=== PATIENT | female | born 1985 | race Caucasian/White ===

== ENCOUNTER 2021-01-01 15:46 | Emergency (ER) | payer MEDICAID ==
[~2021-01-01] VITALS: Ht 170.2 cm; Wt 66.4 kg
[2021-01-01 18:17] LABS: BASOPHILS % (AUTO) 0.1 % (0-1); EOSINOPHILS % (AUTO) 0.1 % (0-6); HEMATOCRIT 29.9 % (35.0-45.0); HEMOGLOBIN 9.9 g/dl (12.0-16.0); LYMPHOCYTES # (AUTO) 1.6 X10'3 (1.1-4.8); LYMPHOCYTES % (AUTO) 19.8 % (21-51); MEAN CORPUSCULAR HEMOGLOBIN 25.5 PG (27.0-31.0); MEAN CORPUSCULAR HGB CONC 33.2 g/dL (33.0-36.5); MEAN CORPUSCULAR VOLUME 76.9 FL (78-98); MEAN PLATELET VOLUME 6.1 FL (7.4-10.4); MONOCYTES # (AUTO) 0.3 X10'3 (0-0.9); MONOCYTES % (AUTO) 4.3 % (2-12); NEUTROPHILS # (AUTO) 6.2 X10'3 (1.8-7.7); NEUTROPHILS % (AUTO) 75.7 % (42-75); PLATELET COUNT 384 X10'3 (140-440); RED BLOOD COUNT 3.89 X10'6 (4.20-5.60); RED CELL DISTRIBUTION WIDTH 17.4 % (11.5-14.5); WHITE BLOOD COUNT 8.2 X10'3 (4.5-11.0)
[2021-01-01 18:28] LABS: ALANINE AMINOTRANSFERASE 28 U/L (12-78); ALBUMIN 3.3 G/DL (3.4-5.0); ALBUMIN/GLOBULIN RATIO 0.6 (1.1-1.5); ALKALINE PHOSPHATASE 90 IU/L (46-116); ANION GAP 9 (8-16); ASPARTATE AMINO TRANSFERASE 29 U/L (10-37); BILIRUBIN,TOTAL 0.2 MG/DL (0.1-1.0); BLOOD UREA NITROGEN 6 MG/DL (7-18); BUN/CREATININE RATIO 9.1 (6.6-38.0); CALCIUM 8.6 MG/DL (8.5-10.1); CHLORIDE 104 MMOL/L (99-107); CREATININE 0.66 MG/DL (0.40-0.90); GLUCOSE 91 MG/DL (70-104); POTASSIUM 3.3 MMOL/L (3.5-5.1); SODIUM 142 MMOL/L (135-145); TOTAL CARBON DIOXIDE 28.9 MMOL/L (24-32); TOTAL PROTEIN 8.4 G/DL (6.4-8.2); eGFR > 90 ML/MIN
[2021-01-01 18:57] LABS: BETA HCG,QUANTITATIVE 113459 mIU/ml
--- NOTE | 2021-01-01 19:15 | NUR ---
Pt c/o "Not doing well." She wants to stop drinking because she is . LM 10/14/20. Admits to drinking 2 1/5th of tequila every day. Yesterday she took a steak knife and made several supeficial scratches on B wrists. Pt agrees to not harm herself while she is here in the ER.
[2021-01-01] MEDS ORDERED: potassium Cl 20 mEq SR tablet PO ONE (20:30)
[2021-01-01] MEDS ORDERED: thiamine 100mg tablet PO ONE (20:30)
[2021-01-01] MEDS ORDERED: folic acid 1mg tablet PO ONE (20:30)
[2021-01-01] MEDS ORDERED: LABE100T5 PO (20:47)
[2021-01-01 20:58] LABS: CLARITY,URINE SLIGHTLY CLOUDY (Clear); COLOR,URINE YELLOW (Yellow); GLUCOSE, URINE NEGATIVE (Neg); KETONES,URINE TRACE mg/dl (Neg); OCCULT BLOOD,URINE NEGATIVE (Neg); PROTEIN,URINE 30 mg/dl (Neg); UA COLLECTION TYPE CLN CATCH MIDSTREAM
[2021-01-01 20:59] LABS: LEUKOCYTE ESTERASE ,URINE MODERATE (Neg); NITRITES, URINE NEGATIVE (Neg); UROBILINOGEN,URINE 0.2 E.U/dL (0.2-1.0)
[2021-01-01 21:01] LABS: CELLULAR CAST 0-4 /LPF (NEGATIVE); SQUAMOUS EPITHELIAL CELL,UR FEW /LPF (FEW)
[2021-01-01 21:02] LABS: BACTERIA,URINE 3+ /HPF (Neg); WBC,URINE 30-50 /HPF (0-4)
[2021-01-01 21:03] LABS: URINE AMPHETAMINE SCREEN NEGATIVE (Neg); URINE BARBITUATE SCREEN NEGATIVE (Neg); URINE BENZODIAZEPINES SCREEN POSITIVE (Neg); URINE CANNABINOID SCREEN POSITIVE (Neg); URINE COCAINE SCREEN NEGATIVE (Neg); URINE METHADONE SCREEN NEGATIVE (Neg); URINE OPIATE SCREEN NEGATIVE (Neg); URINE PHENCYCLIDINE SCREEN NEGATIVE (Neg); WBC CLUMPS,URINE FEW /HPF (NEGATIVE)
--- NOTE | 2021-01-01 22:00 | NUR ---
SISTER IN LAW AT BEDSIDE WITH PT, PT HAS LIVELY CONVERSATION WITH FAMILY IN ROOM, PT REPORTS TO ME THAT SHE HAS HAD ALCOHOL TODAY D/T DEPRESSION AND IS AFRAID OF CAUSING HARM TO HER BABY, SHE ALSO CONFESSES TO SELF INFLICTING SUPERFICIAL CUTS TO WRISTS YESTERDAY D/T FEELINGS OF GUILT PT BECAME TEARFUL WHEN CONFESSING HER FEELINGS REGARDING USE OF ALCOHOL DURING AND WISHES TO RECIEVE HELP
--- NOTE | 2021-01-01 22:49 | NUR ---
PT ROOMED. ASSUMED CARE OF PT. PT MEDICATED AND GIVEN ICE CHIPS
--- NOTE | 2021-01-02 | NUR ---
PT SLEEPING COMFORTABLY
--- NOTE | 2021-01-02 01:38 | NUR ---
Pt moved to bed 14. Room safety maintained and all hazards secured. Sitter nearby. Pt resting.
--- NOTE | 2021-01-02 03:01 | NUR ---
Pt remains resting. Sitter nearby.
--- NOTE | 2021-01-02 04:57 | NUR ---
Pt resting. Sitter nearby.
--- NOTE | 2021-01-02 07:00 | NUR ---
Moved pt from main ER to ER overflow. Pt cooperative with move and am assessment. Pt endorses desire to not drink anymore and desires to go to a rehab for alcoholism. Pt becomes tearful when discussing her situation and says she's "just filled with guilt and shame".
[2021-01-02 08:04] VITALS: BP 150/104
[2021-01-02] MEDS ORDERED: labetalol 100mg tablet PO SCH (08:05)
--- NOTE | 2021-01-02 08:11 | NUR ---
packet sent to [place] [phone]
--- NOTE | 2021-01-02 09:00 | NUR ---
Pt awoke for breakfast and spoke on the phone with a friend for a while. Pt currently sleeping.
--- NOTE | 2021-01-02 11:00 | NUR ---
Pt had been sleeping and currently is cooperating with evaluation by [facility].
== END 2021-01-02 12:34 ==
LOC: ER 15:47
DX: O26.91 Pregnancy related conditions, unspecified, first trimester (principal); R45.851 Suicidal ideations; F10.129 Alcohol abuse with intoxication, unspecified; E87.6 Hypokalemia; D64.9 Anemia, unspecified; Z3A.11 11 weeks gestation of pregnancy; Y90.0 Blood alcohol level of less than 20 mg/100 ml
CPT/HCPCS: 36415; 80053; 80305; 80320; 81001; 84443; 84702; 85025; 99285

== ENCOUNTER 2021-02-14 15:04 | Emergency (ER) | payer MEDICAID ==
[~2021-02-14] VITALS: Ht 170.2 cm; Wt 65.9 kg
[~2021-02-14 15:04] MED LIST: LABE100T5 PO
--- NOTE | 2021-02-14 15:35 | NUR ---
Please contact Mother Surekha, Next of Kin, or Brother Nestor [phone] for further information or prior to discharge. Family is concerned and reports she can be manipulative and persuasive.
[2021-02-14] MEDS ORDERED: TETanus/Pertussis (Acell)/Diphther VAC/PF (Tdap-Adult) 0.5ml syringe IMVAC ONE (15:40)
[2021-02-14 15:47] LABS: BASOPHILS # (AUTO) 0.1 X10'3 (0-0.2); BASOPHILS % (AUTO) 0.6 % (0-1); EOSINOPHILS % (AUTO) 0.2 % (0-6); HEMATOCRIT 28.2 % (35.0-45.0); HEMOGLOBIN 9.7 g/dl (12.0-16.0); LYMPHOCYTES # (AUTO) 1.6 X10'3 (1.1-4.8); LYMPHOCYTES % (AUTO) 13.6 % (21-51); MEAN CORPUSCULAR HGB CONC 34.5 g/dL (33.0-36.5); MEAN PLATELET VOLUME 5.9 FL (7.4-10.4); MONOCYTES # (AUTO) 0.2 X10'3 (0-0.9); NEUTROPHILS # (AUTO) 9.7 X10'3 (1.8-7.7); NEUTROPHILS % (AUTO) 83.6 % (42-75); PLATELET COUNT 296 X10'3 (140-440); RED BLOOD COUNT 3.61 X10'6 (4.20-5.60); RED CELL DISTRIBUTION WIDTH 19.3 % (11.5-14.5); WHITE BLOOD COUNT 11.6 X10'3 (4.5-11.0)
[2021-02-14 16:00] LABS: ALANINE AMINOTRANSFERASE 24 U/L (12-78); ALBUMIN 2.8 G/DL (3.4-5.0); ALBUMIN/GLOBULIN RATIO 0.6 (1.1-1.5); ALKALINE PHOSPHATASE 150 IU/L (46-116); ANION GAP 11 (8-16); ASPARTATE AMINO TRANSFERASE 24 U/L (10-37); BILIRUBIN,TOTAL 0.3 MG/DL (0.1-1.0); BLOOD UREA NITROGEN 6 MG/DL (7-18); BUN/CREATININE RATIO 9.7 (6.6-38.0); CALCIUM 8.5 MG/DL (8.5-10.1); CHLORIDE 102 MMOL/L (99-107); CREATININE 0.62 MG/DL (0.40-0.90); GLUCOSE 87 MG/DL (70-104); SODIUM 139 MMOL/L (135-145); TOTAL CARBON DIOXIDE 25.8 MMOL/L (24-32); TOTAL PROTEIN 7.8 G/DL (6.4-8.2); eGFR > 90 ML/MIN
[2021-02-14] MEDS ORDERED: potassium Cl 20 mEq SR tablet PO STA (16:04)
[2021-02-14 16:24] LABS: BETA HCG,QUANTITATIVE 22145 mIU/ml
[2021-02-14 16:29] LABS: ETHANOL 0.094 GM/DL (0.0-0.010)
[2021-02-14 16:50] LABS: URINE AMPHETAMINE SCREEN NEGATIVE (Neg); URINE BARBITUATE SCREEN NEGATIVE (Neg); URINE BENZODIAZEPINES SCREEN POSITIVE (Neg); URINE CANNABINOID SCREEN NEGATIVE (Neg); URINE COCAINE SCREEN NEGATIVE (Neg); URINE METHADONE SCREEN NEGATIVE (Neg); URINE OPIATE SCREEN NEGATIVE (Neg); URINE PHENCYCLIDINE SCREEN NEGATIVE (Neg)
[2021-02-14 16:57] LABS: CLARITY,URINE CLEAR (Clear); COLOR,URINE YELLOW (Yellow); GLUCOSE, URINE NEGATIVE (Neg); KETONES,URINE NEGATIVE (Neg); LEUKOCYTE ESTERASE ,URINE SMALL (Neg); NITRITES, URINE NEGATIVE (Neg); OCCULT BLOOD,URINE NEGATIVE (Neg); PH,URINE 6.5 (4.8-8.0); PROTEIN,URINE NEGATIVE (Neg)
[2021-02-14 17:03] LABS: UA COLLECTION TYPE CLN CATCH MIDSTREAM
[2021-02-14 17:04] LABS: BACTERIA,URINE FEW /HPF (Neg); MUCUS STRANDS FEW /LPF (Neg); RBC,URINE 0-2 /HPF (0-2); SQUAMOUS EPITHELIAL CELL,UR FEW /LPF (FEW)
[2021-02-14 17:05] LABS: AMORPHOUS URATES 1+
[2021-02-14 18:50] VITALS: BP 141/97
== END 2021-02-14 21:57 | disposition home or self-care (01) ==
LOC: ER 15:04
DX: S61.512A Laceration without foreign body of left wrist, initial encounter (principal); O20.0 Threatened abortion; R45.851 Suicidal ideations; F10.929 Alcohol use, unspecified with intoxication, unspecified; X78.1XXA Intentional self-harm by knife, initial encounter; Y93.89 Activity, other specified; Y92.89 Other specified places as the place of occurrence of the external cause; Y99.8 Other external cause status
CPT/HCPCS: 12001; 36415; 76805; 80053; 80305; 80320; 81001; 84443; 84702; 85025; 99285